=== PATIENT | male | born 1950 | race Caucasian/White ===

== ENCOUNTER 2019-11-28 15:31 | Emergency (ER) | payer MEDICARE, MEDICAID, SELFPAY ==
[2019-11-28 15:34] VITALS: BP 165/109; PULSE 133; RESP 20; TEMP 36.8; O2SAT 98; BMI 26.9
--- NOTE | 2019-11-28 15:52 | EKG12_ITS ---
Test Reason : CHEST OTHER Blood Pressure : / mmHG Vent. Rate : 126 BPM Atrial Rate : 126 BPM P-R Int : 000 ms QRS Dur : 102 ms QT Int : 324 ms P-R-T Axes : 000 -44 -33 degrees QTc Int : 469 ms Atrial fibrillation Left axis deviation Pulmonary disease pattern Nonspecific ST and T wave abnormality Abnormal ECG Confirmed by ANAM FREEMAN, ELISSA ([id number]), sound editor ALEJANDRO ROSA ([id number]) on 11/30/2019 3:02:48 PM Referred By: RAÚL Confirmed By:ELISSA MENDIETA MD
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
[2019-11-28 16:08] LABS: Absolute Lymphocyte Count 1.83 X10^3/uL (0.83-4.51); Absolute Neutrophil Count 7.2 X10^3/uL (2.0-7.7); Basophil# 0.03 X10^3/uL; Basophil% 0.3 % (0-1); Eosinophil# 0.17 X10^3/uL; Eosinophils% 1.8 % (0-5); Hematocrit 42.8 % (40-54); Lymphocyte # 1.83 X10^3/ul (4.0); Lymphocyte % 18.8 % (19-41); Mean Corp Hgb Conc 32.7 g/dL (32-36); Mean Corpuscular Volume 91.8 fL (80-94); Mean Platelet Vol. 12.7 fl (6.2-12.0); Monocyte# 0.49 X10^3/uL; NRBC Flagged by Analyzer 0 % (0-5); Neutrophil # 7.16 X10^3/uL (2.7-7.7); Neutrophil % 73.8 % (47-70); Platelet Count 159 K/mm3 (150-450); RBC Distribution Width CV 13.9 % (11.6-14.6); RBC Distribution Width SD 46.7 fl (35.1-43.9); Red Blood Count 4.66 M/mm3 (4.6-6.2); White Blood Count 9.7 K/mm3 (4.4-11.0)
[2019-11-28 16:19] LABS: Anion Gap 7 (5-15); BUN 16 mg/dL (7-18); BUN/Creat Ratio 14.2 RATIO (10-20); Chloride 108 mmol/L (98-107); Creatinine, Serum 1.13 mg/dL (0.70-1.30); EST Glomerular Filtration Rate 68 mL/min (>60); Est Glom Filt Rate - Afr Amer 82 mL/min (>60); Estimated Creatinine Clearance 75.56 ml/min; Glucose 87 mg/dL (74-106); Potassium 3.6 mmol/L (3.5-5.1); Sodium Level 142 mmol/L (136-145)
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
[2019-11-28] MEDS: Ondansetron 4 MG/2 ML Vial IV (16:41)
[2019-11-28] MEDS: Morphine 4 MG/ML Syringe IV (16:41)
[2019-11-28 16:45] VITALS: PULSE 149
[2019-11-28 16:47] LABS: Bacteria 0 SEEN /hpf (None Seen); Mucous, Urine 0 SEEN /hpf (<or=2+); Red Blood Cells-Urine 0 SEEN /hpf (0-5); White Blood Cells 0 SEEN /hpf (0-5)
[2019-11-28 16:49] LABS: Color, Urine Yellow (Yellow); Glucose, Dipstick Normal (Normal); Ketone-Dipstick Negative (Negative); Leukocyte Esterase-Dipstick Negative /ul (Negative); Nitrite-Dipstick Negative (Negative); Occult Blood-Urine Negative /ul (Negative); Protein-Dipstick Negative (Negative); Urine Bilirubin Dipstick Negative (Negative); Urine Clarity Sl. Cloudy (Clear); Urine Urobilinogen Normal (Normal); Urine pH 6.5 (5.0 - 8.0)
[2019-11-28 17:02] LABS: Squamous Epithelial Cells - UA 0-5 SEEN /hpf (0-5)
[2019-11-28] MEDS: dilTIAZem 25 MG/5 ML Vial 20 MG IV BOLUS (17:03)
[2019-11-28 17:46] VITALS: BP 145/96; PULSE 108; RESP 20; O2SAT 95
--- NOTE | 2019-11-28 17:47 | ED.RN ---
UPON ARRIVAL TO ER, DAUGHTER WALKS PAST SCREENER AND TRIAGE NURSE AND DEMANDS TO BE IN THE ROOM WITH HER FATHER. EDUCATED ON VISITOR POLICY. DAUGHTER IS IRATE WITH STAFF AND CALLS AND SPEAKS TO CHARGE NURSE, PER CHARGE NURSE DAUGHTER IS YELLING AT RN AND DEMANDS HE BE TRANSFERRED. EDUCATION PROVIDED TO PT, HE STATES HE WILL STAY TO ALLOW DR OLSEN TO TREAT HIM. DAUGHTER PUT IN TOUCH WITH HEATER HELPER. HEATER HELPER ASSISTED WITH CALMING DAUGHTER. DAUGHTER REMAINS RUDE TO STAFF AND REFUSES TO LISTEN TO EDUCATION. REPEATEDLY REMOVING MASK. DAUGHTER STAYS AT BEDSIDE WITH PT.
== END 2019-11-28 17:54 | disposition left against medical advice (07) ==
PROVIDERS: Emergency Provider Emergency Medicine; PCP Nurse Practitioner Adult Health
DX: S30.1XXA Contusion of abdominal wall, initial encounter (principal); V89.2XXA Person injured in unspecified motor-vehicle accident, traffic, initial encounter; Y93.9 Activity, unspecified; Y92.410 Unspecified street and highway as the place of occurrence of the external cause; Y99.9 Unspecified external cause status; I48.91 Unspecified atrial fibrillation; F17.200 Nicotine dependence, unspecified, uncomplicated; Z79.01 Long term (current) use of anticoagulants; Z88.0 Allergy status to penicillin
CPT/HCPCS: 74177; 80048; 81001; 85025; 93005; 96361; 96374; 96375; 99285; J7030; Q9967; A4216; J2405